=== PATIENT | male | born 1995 | race Native Hawaiian/Other Pacific Islander ===

== ENCOUNTER 2022-11-26 16:41 | Emergency (ER) | payer MEDICAID ==
[~2022-11-26] VITALS: Ht 182.9 cm; Wt 114.3 kg
[2022-11-26 16:41] VITALS: BP_SYST 128
--- NOTE | 2022-11-26 16:50 | NUR ---
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 +SWELLING PER PT.
--- NOTE | 2022-11-26 16:52 | NUR ---
PT IS A RESIDENT OF [facility] DETOXING OFF M[facility]
--- NOTE | 2022-11-26 18:55 | NUR ---
Seen by Dr. Cadena in the triage room per documentation.
[2022-11-26] MEDS ORDERED: IBUP-1969 PO (18:58)
[2022-11-26] MEDS ORDERED: METH-634 PO (18:58)
[2022-11-26] MEDS ORDERED: LIDO1ADH71 TD (18:58)
[2022-11-26] MEDS ORDERED: HYDROcodone/ACETAMIN 5-325 MG TAB (NORCO/ VICODIN) PO ONE (19:00)
--- NOTE | 2022-11-26 19:26 | NUR ---
Patient given written and verbal discharge instructions and verbalizes understanding. ER MD discussed with patient the results and treatment provided. Patient in stable condition. ID arm band removed. Rx of IBUPROFEN, LIDOCAINE, ROBAXIN given. Patient educated on pain management and to follow up with PMD. Pain Scale 3/10. Opportunity for questions provided and answered. Medication side effect fact sheet provided.
== END 2022-11-26 19:27 | disposition home or self-care (01) ==
LOC: SED 16:41
DX: M79.652 Pain in left thigh (principal); Z79.899 Other long term (current) drug therapy
CPT/HCPCS: 73552; 99283